=== PATIENT | female | born 1950 | race Two or more races ===

== ENCOUNTER 2016-07-17 20:10 | Emergency (ER) | payer MEDICAID ==
[~2016-07-17] VITALS: Ht 162.6 cm; Wt 59.0 kg
[~2016-07-17 20:10] MED LIST: GLIP-116 PO; LEVO150T10 PO; METF-316 PO
[2016-07-17 20:14] VITALS: BP 177/74
[2016-07-17 20:58] LABS: Basophils # (auto) 0.1 uL; Basophils % (auto) 1.2 % (0.0-2.0); Eosinophils # (auto) 0.4 uL; Eosinophils % (auto) 4.5 % (0.0-7.0); Hemoglobin 13.8 g/dL (12.2-16.2); Lymphocytes # (auto) 2.8 uL; Lymphocytes % (auto) 32.5 % (10.0-50.0); Mean Corpuscular Hemoglobin 27.5 pg (28.0-32.0); Mean Corpuscular Hgb Conc. 32.8 g/dL (32.0-36.0); Mean Corpuscular Volume 83.6 fL (80.0-100.0); Mean Platelet Volume 8.2 fL (7.4-10.4); Monocytes # (auto) 0.7 uL; Monocytes % (auto) 8.3 % (0.0-12.0); Neutrophils # (auto) 4.6 uL; Neutrophils % (auto) 53.5 % (37.0-80.0); Platelet Count (auto) 296 10^3/uL (140-450); Red Cell Distribution Width 13.2 % (11.6-16.0); White Blood Cell 8.5 10^3/uL (4.4-10.8)
[2016-07-17 21:06] LABS: INR 0.98 (0.9-1.15); Partial Thromboplastin Time 27.1 sec (22.64-33.71); Prothrombin Time 10.1 sec (9.37-12.3)
[2016-07-17 21:15] LABS: Albumin 3.7 g/dL (3.4-5.0); BUN/Creatinine Ratio 19.4; Calcium 8.7 mg/dL (8.5-10.1); Potassium 3.8 mmol/L (3.5-5.1)
[2016-07-17 21:20] LABS: Bilirubin, Total 0.2 mg/dL (0.2-1.0); Total Protein 7.7 g/dL (6.4-8.2)
== END 2016-07-17 23:20 | disposition left against medical advice (07) ==
LOC: ER 20:14
DX: R20.0 Anesthesia of skin (principal); R25.1 Tremor, unspecified; Z53.21 Procedure and treatment not carried out due to patient leaving prior to being seen by health care provider
CPT/HCPCS: 36415; 80053; 82962; 83735; 84484; 85025; 85610; 85730; 93005

== ENCOUNTER 2016-11-17 14:26 | Emergency (ER) | payer MEDICAID ==
[~2016-11-17] VITALS: Ht 154.9 cm; Wt 59.0 kg
[~2016-11-17 14:26] MED LIST changes: -METF-316 PO; +METF-372 PO
[2016-11-17 15:39] LABS: Basophils # (auto) 0 uL; Basophils % (auto) 0.1 % (0.0-2.0); CONDITION Y; Eosinophils # (auto) 0 uL; Eosinophils % (auto) 0.1 % (0.0-7.0); Hematocrit 42.9 % (36.0-46.0); Hemoglobin 14.3 g/dL (12.2-16.2); Lymphocytes # (auto) 0.6 uL; Lymphocytes % (auto) 5.9 % (10.0-50.0); Mean Corpuscular Hemoglobin 27.7 pg (28.0-32.0); Mean Corpuscular Hgb Conc. 33.4 g/dL (32.0-36.0); Mean Corpuscular Volume 82.9 fL (80.0-100.0); Mean Platelet Volume 8.4 fL (7.4-10.4); Monocytes # (auto) 0.6 uL; Monocytes % (auto) 5.9 % (0.0-12.0); Neutrophils # (auto) 9.5 uL; Platelet Count (auto) 275 10^3/uL (140-450); Red Cell Distribution Width 13.8 % (11.6-16.0); White Blood Cell 10.8 10^3/uL (4.4-10.8)
[2016-11-17 15:49] LABS: Albumin 3.3 g/dL (3.4-5.0); Anion Gap 8 (5-15); Aspartate Aminotransferase 14 U/L (15-37); BUN/Creatinine Ratio 15.7; Blood Urea Nitrogen 11 mg/dL (7-18); Calcium 8.3 mg/dL (8.5-10.1); Carbon Dioxide 24 mmol/L (21-32); Chloride 103 mmol/L (98-107); GFR African American 108 mL/min; GFR Non-African American 89 mL/min; Glucose 193 mg/dL (74-106); Potassium 3.9 mmol/L (3.5-5.1); Sodium 135 mmol/L (136-145)
[2016-11-17 15:53] LABS: Alkaline Phosphatase 77 U/L (45-117); Bilirubin, Total 0.4 mg/dL (0.2-1.0); Total Protein 7.4 g/dL (6.4-8.2)
[2016-11-17 16:50] VITALS: BP 113/59
[2016-11-17] MEDS ORDERED: SODIUM CHLORIDE 0.9% 1,000 ML IV ONE ×3 (17:00→17:10)
[2016-11-17] MEDS ORDERED: ONDANSETRON HCL 4 MG/2 ML VIAL IV ONE (17:00)
[2016-11-17] MEDS ORDERED: MORPHINE SULFATE 4 MG/ML SYRG IV ONE (17:30)
[2016-11-17 17:43] LABS: Urine Bilirubin Negative (Negative); Urine Blood Negative /uL (Negative); Urine Color Yellow (Yellow); Urine Glucose TRACE mg/dL (Normal); Urine Ketone 1+ (Negative); Urine Mucus FEW (None Seen); Urine Nitrite Negative (Negative); Urine RBC 1 /hpf (0 - 4); Urine Squamous Epithelial Cell FEW /hpf (<5); Urine Urobilinogen Normal (Negative); Urine pH 5.5 (5.0-8.0)
[2016-11-17 18:14] LABS: Amylase 20 U/L (25-115)
[2016-11-17] MEDS ORDERED: metroNIDAZOLE 500 MG TAB PO ONE (19:00)
== END 2016-11-17 18:50 | disposition home or self-care (01) ==
LOC: ER 14:31
DX: E86.0 Dehydration (principal); E44.1 Mild protein-calorie malnutrition; R10.12 Left upper quadrant pain; R10.13 Epigastric pain; R11.2 Nausea with vomiting, unspecified; R19.7 Diarrhea, unspecified; R07.0 Pain in throat; E07.9 Disorder of thyroid, unspecified; I10 Essential (primary) hypertension; E11.9 Type 2 diabetes mellitus without complications; Z90.49 Acquired absence of other specified parts of digestive tract
CPT/HCPCS: 36415; 71010; 74176; 80053; 81001; 82150; 83690; 84484; 85025; 93005; 96361; 96374; 96375; 99285; J2270; J2405; J7030

== ENCOUNTER 2016-11-18 12:09 | Emergency (ER) | payer MEDICAID ==
[2016-11-18 12:21] VITALS: BP 102/60
== END 2016-11-18 17:15 | disposition left against medical advice (07) ==
LOC: ER 12:09
DX: R10.9 Unspecified abdominal pain (principal); Z53.21 Procedure and treatment not carried out due to patient leaving prior to being seen by health care provider
CPT/HCPCS: 93005

== ENCOUNTER 2023-06-09 11:32 | Emergency (ER) | payer MEDICAID ==
[~2023-06-09] VITALS: Ht 162.6 cm; Wt 91.0 kg
[~2023-06-09 11:32] MED LIST changes: -GLIP-116 PO; +GLIP10TA9 PO
[2023-06-09] MEDS ORDERED: SODIUM BICARBONATE 8.4% INJ 50ML SYRINGE IV ONE (11:34)
[2023-06-09] MEDS ORDERED: EPINEPHrine HCL 1 MG/10 ML SYRG IV ONE (11:34)
[2023-06-09] MEDS ORDERED: ETOMIDATE (2MG/ML) 20ML VIAL IV ONE ×2 (12:03→15:30)
[2023-06-09] MEDS ORDERED: ROCURONIUM 10MG/ML 10ML VIAL IV ONE ×2 (12:03→15:30)
[2023-06-09 12:10] VITALS: TEMP 96.5
[2023-06-09] MEDS ORDERED: MIDAZOLAM DRIP 50 mg/50mL 50 ML IV ONE (12:12)
[2023-06-09] MEDS ORDERED: NOREPINEPHRINE 8 MG/250ML KIT 250 ML IV ONE (12:22)
[2023-06-09 15:10] VITALS: PULSE 69; RESP 20; O2SAT 96
[2023-06-09 15:30] VITALS: BP 89/43
[2023-06-09] MEDS ORDERED: MIDAZOLAM DRIP 50 mg/50mL 50 ML IV SCH (15:30)
[2023-06-09] MEDS ORDERED: NOREPINEPHRINE 8 MG/250ML KIT 250 ML IV SCH (15:30)
== END 2023-06-09 14:07 ==
LOC: EDBD 11:32 → ER 11:33
DX: K74.60 Unspecified cirrhosis of liver (principal); G93.41 Metabolic encephalopathy; J96.90 Respiratory failure, unspecified, unspecified whether with hypoxia or hypercapnia; R18.8 Other ascites; T68.XXXA Hypothermia, initial encounter; E03.9 Hypothyroidism, unspecified; I12.9 Hypertensive chronic kidney disease with stage 1 through stage 4 chronic kidney disease, or unspecified chronic kidney disease; E11.22 Type 2 diabetes mellitus with diabetic chronic kidney disease; N18.9 Chronic kidney disease, unspecified; Z90.49 Acquired absence of other specified parts of digestive tract
CPT/HCPCS: 31500; 36600; 71045; 82805; 92950; 93005; 99291; J0171; J2250